=== PATIENT | female | born 1990 | race Caucasian/White ===

== ENCOUNTER 2016-08-30 13:39 | Emergency (ER) | payer OTHER ==
[2016-08-30 14:27] VITALS: BP 147/70
--- NOTE | 2016-08-30 15:48 | UC ---
Throat Pain/Nasal Dg HPI - HPI Summary HPI Summary: 26 yo female with a PMH of depression, tobacco abuse who presents with 2 days of sore throat, headache, nasal congestion, bodyaches, mild diarrhea and intermittent low grade fever of 100, also reports mild ear pressure. She reports her symptoms started wednesday evening and have been consistent, biggest complaint a sore throat and has been eating soft foods only. No abdominal pain, nausea, chills, dysuria, no cough or SOB. continues to smoke cigarettes regularly. Has not treated herself with anything and has not had any sick contacts - History of Current Complaint Chief Complaint: UCGeneralIllness Stated Complaint: SORE THROAT Time Seen by Provider: 08/30/16 15:47 Hx Obtained From: Patient Hx Last Menstrual Period: Mirena IUD ?: No Onset/Duration: Sudden Onset - 2 days ago Pain Intensity: 5 Pain Scale Used: 0-10 Numeric - sore throat Cough: None Associated Signs & Symptoms: Positive: Nasal Discharge, Fever Related History: Smoking - Epiglottits Risk Factors Epiglottis Risk Factors: Negative - Allergies/Home Medications Allergies/Adverse Reactions: Allergies Allergy/AdvReac Type Severity Reaction Status Date / Time Ziprasidone [From [facility]] Allergy Severe Swelling Verified 08/30/16 14:26 Of Face,Lips,& Throat Home Medications: Home Medications Acetaminophen TAB* [Tylenol TAB*] 1,000 mg PO QID PRN 08/30/16 [History Confirmed 08/30/16] Propranolol TAB* [Inderal TAB*] 10 mg PO TID 08/30/16 [History Confirmed ] PMH/Surg Hx/FS Hx/Imm Hx Previously Healthy: Yes Endocrine History Of: Denies: Diabetes, Thyroid Disease Cardiovascular History Of: Denies: Cardiac Disorders, Hypertension Respiratory History Of: Denies: COPD, Asthma GI/ History Of: Denies: Ulcer Psychological History Of: Reports: Bipolar Disorder - Surgical History Surgical History: Yes Surgery Procedure, Year, and Place: SKIN TAG REMOVAL - Family History Known Family History: Positive: Diabetes - Social History Occupation: Employed Full-time Lives: With Family Alcohol Use: None Substance Use Type: None Smoking Status (MU): Current Every Day Smoker Type: Cigarettes Length of Time of Smoking/Using Tobacco: 1/2 ppd Have You Smoked in the Last Year: Yes Cessation Counseling: Counseled 3+Min - 10 Min - Immunization History Most Recent Tetanus Shot: none recent Hx Tetanus, Diphtheria Vaccination: Yes Vaccination Up to Date: Yes Review of Systems Constitutional: Fever, Fatigue, Other - sore throat Skin: Negative Eyes: Negative ENT: Sore Throat, Nasal Discharge Respiratory: Negative Cardiovascular: Negative Gastrointestinal: Diarrhea Genitourinary: Negative Motor: Negative Neurovascular: Negative Musculoskeletal: Negative Neurological: Headache Psychological: Negative All Other Systems Reviewed And Are Negative: Yes Physical Exam Triage Information Reviewed: Yes Appearance: No Pain Distress, Well-Nourished, Ill-Appearing - mild Vital Signs: Initial Vital Signs Temp 98.2 F 08/30/16 14:24 Pulse 86 08/30/16 14:24 Resp 16 08/30/16 14:24 BP 147/70 08/30/16 14:24 Pulse Ox 99 08/30/16 14:24 Vital Signs Reviewed: Yes Eye Exam: Normal Eyes: Positive: Conjunctiva Clear ENT Exam: Normal ENT: Positive: Pharyngeal erythema, Nasal congestion, TMs normal, Tonsillar swelling - 2+ bilateral, uvula midline, Tonsillar exudate - one small patch noted on left tonsil Neck: Positive: Supple, Enlarged Nodes @ - cervical tenderness. Negative: Nuchal Rigidity Respiratory: Positive: Chest non-tender, Lungs clear, Normal breath sounds, No respiratory distress, No accessory muscle use Cardiovascular: Positive: RRR, No Murmur, Pulses Normal, Brisk Capillary Refill Abdomen Description: Positive: Nontender, Soft. Negative: CVA Tenderness (R), CVA Tenderness (L), Distended Musculoskeletal Exam: Normal Musculoskeletal: Positive: Strength Intact, ROM Intact, No Edema Neurological: Positive: Alert Psychological Exam: Normal Skin Exam: Normal Diagnostics - Laboratory Diagnostic Studies Completed/Ordered: positive strep POC Throat Pain/Nasal Course/Dx - Differential Dx/Diagnosis Differential Diagnosis/HQI/PQRI: Pharyngitis Provider Diagnoses: 1. Streptococcal phayngitis Discharge - Discharge Plan Condition: Stable Disposition: HOME Prescriptions: Amoxicillin CAP* [Amoxicillin 500 MG CAP*] 500 mg PO Q12H #20 cap Patient Education Materials: Strep Throat (ED) Referrals: Parth Mathews MD [Primary Care Provider] - (follow up in 2 days in no improvement) Additional Instructions: As discussed, gargle with warm salt water frequently to reduce inflammation, pain and help prevent abscess from forming. If you have any worsening symptoms see your primary care provider or return. Strongly recommended to quit smoking.
== END 2016-08-30 16:31 | disposition home or self-care (01) ==
LOC: UCEAST 13:39
DX: J02.0 Streptococcal pharyngitis (principal); F31.9 Bipolar disorder, unspecified; Z88.8 Allergy status to other drugs, medicaments and biological substances; F17.210 Nicotine dependence, cigarettes, uncomplicated; Z71.6 Tobacco abuse counseling
CPT/HCPCS: 87651; 99212; G0463

== ENCOUNTER 2017-01-07 17:24 | Emergency (ER) | payer SELFPAY ==
[2017-01-07 17:34] VITALS: BP 111/68
--- NOTE | 2017-01-07 18:45 | UC ---
Laceration HPI - HPI Summary HPI Summary: Patient presents with L thumb laceration to the radial side. Injury occurred with scissors at work. Pain is 4/10 and throbbing. Bleeding controlled. Superficial. Laceration is 2.0cm without FB or irregularities. She denies other symptoms. Requesting note for work. Tetanus UTD. - History Of Current Complaint Chief Complaint: UCLaceration Stated Complaint: LEFT THUMB LAC (WC) Time Seen by Provider: 01/07/17 17:35 Hx Obtained From: Patient Hx Last Menstrual Period: 12/29/16 Laceration Location: Finger Mechanism Of Injury: Sharp Trauma Onset/Duration: Sudden Onset Severity: Mild Pain Intensity: 4 Pain Scale Used: 0-10 Numeric - Allergies/Home Medications Allergies/Adverse Reactions: Allergies Allergy/AdvReac Type Severity Reaction Status Date / Time Ziprasidone [From Radhika] Allergy Severe Swelling Verified 01/07/17 17:34 Of Face,Lips,& Throat Home Medications: Home Medications ARIPiprazole TAB* [Abilify TAB*] 1 dose PO DAILY 01/07/17 [History Confirmed ] PMH/Surg Hx/FS Hx/Imm Hx Previously Healthy: Yes - Surgical History Surgical History: Yes Surgery Procedure, Year, and Place: SKIN TAG REMOVAL - Family History Known Family History: Positive: Diabetes - Social History Occupation: Employed Full-time Lives: With Family Alcohol Use: None Substance Use Type: None Smoking Status (MU): Current Every Day Smoker Type: Cigarettes Length of Time of Smoking/Using Tobacco: 1/2 ppd Have You Smoked in the Last Year: Yes - Immunization History Most Recent Tetanus Shot: none recent Hx Tetanus, Diphtheria Vaccination: Yes Vaccination Up to Date: Yes Review of Systems Constitutional: Negative Skin: Other - laceration to the radial side of the thumb Respiratory: Negative Cardiovascular: Negative Motor: Negative Neurovascular: Negative Musculoskeletal: Negative Neurological: Negative Is Patient Immunocompromised?: No All Other Systems Reviewed And Are Negative: Yes Physical Exam Triage Information Reviewed: Yes Appearance: Well-Appearing, Well-Nourished Vital Signs: Initial Vital Signs Temp 97.6 F 01/07/17 17:30 Pulse 77 01/07/17 17:30 Resp 14 01/07/17 17:30 BP 111/68 01/07/17 17:30 Vital Signs Reviewed: Yes Eye Exam: Normal Eyes: Positive: Conjunctiva Clear Neck exam: Normal Neck: Positive: Supple, Nontender, No Lymphadenopathy Respiratory Exam: Normal Respiratory: Positive: Chest non-tender, Lungs clear Cardiovascular Exam: Normal Cardiovascular: Positive: RRR Musculoskeletal Exam: Normal Musculoskeletal: Positive: Strength Intact Neurological Exam: Normal Neurological: Positive: Alert, Muscle Tone Normal Psychological: Positive: Normal Response To Family, Age Appropriate Behavior Skin: Positive: significant lesion(s) - laceraion 2.0 cm Laceration Repair - Laceration Repair 1 Description: Linear Laceration Size After Repair: Length (cm) Modified For Repair: No Closure Material: Skin Adhesive Laceration Course/Dx - Course/Dx Course Of Treatment: Patient is evaluated for laceration to the radial side of the thumv measuring 2.0cm superficial. Adhesive placed over the wound. Gauze wrapped with compression dressing. Patient OK with discharge. Note given for work. No abx given. - Differential Dx - Laceration/Wound Differental Diagnoses: Suture Removal, Tendon Laceration Provider Diagnoses: laceration Discharge - Discharge Plan Condition: Stable Disposition: HOME Patient Education Materials: Skin Adhesive Care (ED) Forms: *Work Release Referrals: Parth Mathews MD [Primary Care Provider] -
== END 2017-01-07 18:11 | disposition home or self-care (01) ==
LOC: UCCORT 17:24
DX: S61.012A Laceration without foreign body of left thumb without damage to nail, initial encounter (principal); W27.2XXA Contact with scissors, initial encounter; Z88.8 Allergy status to other drugs, medicaments and biological substances
CPT/HCPCS: 12001; 99211; G0463

== ENCOUNTER 2017-08-26 17:43 | Emergency (ER) | payer OTHER ==
[2017-08-26 18:15] VITALS: BP 122/72
--- NOTE | 2017-08-26 19:06 | UC ---
- HPI Summary HPI Summary: here because symptoms of the past month, since diagnosed, have been making her feel unwell and lightheaded. She has had to pull off the road on one occasion. History of OCD, bipolar and anxiety. She stopped abilify and lithium in March 2017, and had her Mirena IUD removed. Although not planning , she was not preventing it, and desired another . Has been tearful and upset the past few days, very worried about health of . In the past, she was on medications after the of her daughter, conceived, and was advised to terminate the pregnacy due to the medication exposure. This was very traumatic for her, and she fears that she will have problems with this . Had hyperemesis with first , but did not feel this unwell. 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 Severity: Moderate Current Severity: Moderate Pain Intensity: 0 Associated Signs and Symptoms: Positive: Other: - headaches have been coming off and on - Assessment Hx Now: Yes History of Ectopic : No Hx Pelvic Inflammatory Disease: No Vaginal Bleeding Amount: None Hx Last Menstrual Period: 06/30/17 History of STI/STD: No - Risk Factors Ectopic Risk Factor: IUD Use - removed 6 months ago Ovarian Torsion Risk Factor: Negative - Additional Pertinent History Maternal Blood Type and Rh: AB Positive - Allergies/Home Medications Allergies/Adverse Reactions: Allergies Allergy/AdvReac Type Severity Reaction Status Date / Time ziprasidone [From Radhika] Allergy Swelling Verified 08/26/17 18:16 Of Face,Lips,& Throat PMH/Surg Hx/FS Hx/Imm Hx Psychological History: Anxiety, Bipolar Disorder, Other - OCD Other Psychological History: OCD - Surgical History Surgical History: Yes Surgery Procedure, Year, and Place: SKIN TAG REMOVAL - Family History Known Family History: Positive: Diabetes, Other - thyroid disease. 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 Genitourinary: Negative Motor: Weakness Neurovascular: Negative Musculoskeletal: Negative Neurological: Headache Psychological: Anxious Is Patient Immunocompromised?: No All Other Systems Reviewed And Are Negative: Yes Physical Exam - Physical Exam Triage Information Reviewed: Yes Appearance: Positive: Well-Nourished - tearful and anxious, stable vital signs. Skin: Positive: Warm Head/Face: Positive: Normal Head/Face Inspection Eyes: Positive: Normal, EOMI, DONAVON, Conjunctiva Clear ENT: Positive: Pharynx normal, TMs normal Respiratory/Lung Sounds: Positive: Clear to Auscultation. Negative: Decreased Breath Sounds, Rales Cardiovascular: Positive: Normal, RRR. Negative: Leg Edema Left, Leg Edema Right Abdomen Description: Positive: Nontender, No Organomegaly, Soft Musculoskeletal: Positive: Normal Neurological: Positive: Normal Psychiatric: Positive: Anxious AVPU Assessment: Alert Diagnostics - Laboratory Diagnostic Studies Completed/Ordered: UA negative for infection, blood glucose of 79 Course/Dx - Course Course Of Treatment: reassurance that exam is normal. Encouraged mental health follow up and OB follow up as arranged. Sees OB 09/02/17 - Differential Diagnosis/HQI/PQRI: Intrauterine , UTI, Other: - anxiety, depression - Diagnoses Provider Diagnoses: Anxiety about health Discharge - Sign-Out/Discharge Documenting (check all that apply): Discharge/Admit/Transfer - Discharge Plan Condition: Stable Disposition: HOME Patient Education Materials: (ED) Forms: *Work Release Referrals: Parth Mathews MD [Primary Care Provider] - Additional Instructions: Your symptoms are consistent with the experience of early . I suggest that you follow up with Dr. Mathews or your counsellor as well as OBGYN to establish care. As discussed, your concerns and worries are understandable given your experience , and your physical findings today are normal. - Billing Disposition and Condition Condition: STABLE Disposition: HOME
== END 2017-08-26 19:28 | disposition home or self-care (01) ==
LOC: UCCORT 17:43
DX: F41.9 Anxiety disorder, unspecified (principal); F42.9 Obsessive-compulsive disorder, unspecified; F17.210 Nicotine dependence, cigarettes, uncomplicated; Z88.8 Allergy status to other drugs, medicaments and biological substances
CPT/HCPCS: 81003; 99211; G0463

== ENCOUNTER 2017-11-16 07:23 | Emergency (ER) | payer OTHER ==
[2017-11-16 07:36] VITALS: BP 121/68
--- NOTE | 2017-11-16 08:29 | UC ---
Skin Complaint HPI - HPI Summary HPI Summary: NOTICED A RED LESION ON HER LEFT WRIST ABOUT A WEEK AGO. STATES IT HAS GOTTEN DARKER. NOT ITCHY OR PAINFUL. ALSO COMPLAINS OF SEVERAL DAYS OF LOW BACK PAIN. PATIENT DOES HEAVY LIFTING AT WORK AND IS ALSO 6 MONTHS . NO URINARY SYMPTOMS. - History of Current Complaint Chief Complaint: UCBackPain Time Seen by Provider: 11/16/17 07:43 Stated Complaint: BACK PAIN SKIN ISSUE Hx Obtained From: Patient Hx Last Menstrual Period: 12/29/16 Onset/Duration: Gradual Onset, Lasting Days, Still Present Timing: Constant Onset Severity: Moderate Current Severity: Moderate Pain Intensity: 5 - BACK PAIN Pain Scale Used: 0-10 Numeric Location: Other - LEFT WRIST Aggravating Factor(s): Nothing Alleviating Factor(s): Nothing - Allergy/Home Medications Allergies/Adverse Reactions: Allergies Allergy/AdvReac Type Severity Reaction Status Date / Time ziprasidone [From Radhika] Allergy Swelling Verified 11/16/17 07:36 Of Face,Lips,& Throat Home Medications: Home Medications Pnv No.95/Ferrous Fum/Folic AC [ Tablet] 1 tab PO 11/16/17 [History] Review of Systems Constitutional: Negative Skin: Rash Respiratory: Negative Cardiovascular: Negative Gastrointestinal: Negative Genitourinary: Negative Musculoskeletal: Myalgia All Other Systems Reviewed And Are Negative: Yes PMH/Surg Hx/FS Hx/Imm Hx Previously Healthy: Yes - Surgical History Surgical History: Yes Surgery Procedure, Year, and Place: SKIN TAG REMOVAL - Family History Known Family History: Positive: Diabetes, Other - thyroid disease. Negative: Hypertension - Social History Alcohol Use: None Substance Use Type: None Smoking Status (MU): Light Every Day Tobacco Smoker Type: Cigarettes Length of Time of Smoking/Using Tobacco: 1/2 ppd Have You Smoked in the Last Year: Yes - Immunization History Most Recent Tetanus Shot: none recent Hx Tetanus, Diphtheria Vaccination: Yes Vaccination Up to Date: Yes Physical Exam Triage Information Reviewed: Yes Appearance: Well-Appearing, No Pain Distress, Well-Nourished Vital Signs: Initial Vital Signs Temp 99.1 F 11/16/17 07:32 Pulse 105 11/16/17 07:32 Resp 18 11/16/17 07:32 BP 121/68 11/16/17 07:32 Pulse Ox 99 11/16/17 07:32 Laboratory Tests 11/16/17 07:47 POC Urine Color Hien POC Urine Clarity Clear POC Urine pH 6.0 POC Ur Specif [place] >= 1.030 POC Urine Protein Trace A POC Ur Glucose (UA) Negative POC Urine Ketones Negative POC Urine Blood Negative POC Urine Nitrite Negative POC Urine Bilirubin 1+ A POC Urine Urobilinogen 1.0 POC U Leukocyte Esteras Negative Vital Signs Reviewed: Yes Eyes: Positive: Conjunctiva Clear ENT: Positive: Hearing grossly normal Neck: Positive: Supple Respiratory: Positive: No respiratory distress, No accessory muscle use Cardiovascular: Positive: Pulses Normal Abdomen Description: Positive: Soft - GRAVID Musculoskeletal: Positive: No Edema Neurological: Positive: Alert Psychological: Positive: Age Appropriate Behavior Skin: Positive: rashes - 1.5CM CIRCULAR LESION WITH CENTRAL CLEARING AND FINE SCALE RADIAL SIDE OF LEFT WRIST Course/Dx - Diagnoses Provider Diagnoses: 1. RING WORM - LEFT WRIST. 2. ACUTE LOW BACK PAIN Discharge - Sign-Out/Discharge Documenting (check all that apply): Patient Departure - Discharge Plan Condition: Stable Disposition: HOME Prescriptions: Terbinafine HCl [Antifungal] 15 gm TP DAILY #1 tube Patient Education Materials: Tinea Corporis (ED), Low Back Strain (ED) Forms: *Work Release Referrals: Parth Mathews MD [Primary Care Provider] - If Needed Additional Instructions: APPLY THE ANTIFUNGAL TO SPOT ON YOUR LEFT WRIST DAILY. IT MAY TAKE UP TO 4 WEEKS TO RESPOND. IF NOT IMPROVING EXPECTED FOLLOW-UP WITH DERMATOLOGY. DERMATOLOGY IN [place] DR. SANTINO OSEGUERA [facility], [facility] [address]; [address] [place] [address] Dr. Morena Taylor [place] Address: [address] [place] [address] [address] [place] [address] [facility] [address] [place] [address] [place] [address] Carolynn Carlos DERMATOLOGY IN [place] DR. NIMCO ROBLES [phone] YOUR LOW BACK PAIN MAY BE DUE TO AN ACUTE STRAIN BUT IS LIKELY ALSO CONTRIBUTED TO BY YOUR CURRENT . YOU MAY TAKE TYLENOL TO HELP WITH DISCOMFORT AND USE A HEATING PAD. NO NSAIDS SUCH IBUPROFEN OR ALEVE DURING . BE SURE TO GO THROUGH SLOW RANGE OF MOTION AND STRETCHING EXERCISES DAILY YOU ARE ABLE TO PREVENT STIFFENING UP AND MAKING THE DISCOMFORT WORSE. YOU HAD A TRACE AMOUNT OF PROTEIN IN YOUR URINE WHICH IS LIKELY SIMPLY DUE TO LACK OF FLUID HYDRATION. BE SURE TO DRINK WATER TO STAY WELL-HYDRATED. KEEP YOUR OB APPOINTMENT NEXT WEEK. THEY WILL RECHECK YOUR URINE AT THAT TIME. - Billing Disposition and Condition Condition: STABLE Disposition: Home
== END 2017-11-16 08:30 | disposition home or self-care (01) ==
LOC: UCEAST 07:23
DX: O26.892 Other specified pregnancy related conditions, second trimester (principal); B35.4 Tinea corporis; M54.5 Low back pain; Z3A.26 26 weeks gestation of pregnancy; Z88.8 Allergy status to other drugs, medicaments and biological substances; F17.210 Nicotine dependence, cigarettes, uncomplicated
CPT/HCPCS: 81003; 99212; G0463

== ENCOUNTER 2018-04-03 08:17 | Inpatient (IN) | payer MEDICAID, OTHER ==
[2018-04-03] MEDS ORDERED: Lactated Ringers 1000 ML Bag* 1,000 ML IV ONE ×2 (09:18→20:12)
--- NOTE | 2018-04-03 09:39 | HP ---
General Information - Reason for Visit Pt experienced SROM to clear fluid at 0622. Beginning to have more regular contractions - General Information Maternal Age: 27 Grav: 3 Para: 1 SAB: 0 IEA: 1 Estimated Due Date: 04/06/18 Determined By: Early Ultrasound Maternal Blood Type and Rh: AB Positive - Results this Serology/RPR Result: Non-Reactive Rubella Result: Immune HBsAg Result: Negative HIV Result: Negative GBS Culture Result: Negative Past Medical History Delivery History: Hx Uncomplicated Vaginal Delivery Pertinent Past Medical History: See Records - back pain, enlarged pituitary gland, migraine, BPD (resolved after stopping Mirena), substance use disorder (no use since 2009) Pertinent Past Surgical History: See Records - wisdom tooth extraction Pertinent Family History: See Records - depression, heart disease, "hole in heart" - Antepartal Records Antepartal Records: Reviewed, Complicated by: - non-immune to varicella, smoker, gestational thrombocytopenia Review of Systems Constitutional: Comfortable CV Complaint: No Respiratory: Shortness of Breath: No Gastrointestinal: No Nausea/Vomiting, Normal Bowel Movement Genitourinary: Leaking Fluid, No Dysuria, No Bleeding Musculoskeletal: No Epigastric Pain, Contractions Neurological: No Headache, No Visual Changes Movement: Normal Exam Allergies/Adverse Reactions: Allergies ziprasidone [From Geodon] Allergy (Severe, Verified 04/03/18 08:34) Swelling Of Face,Lips,& Throat Vital Signs 04/03/18 08:25 Temperature 98.0 F Pulse Rate 104 Respiratory 17 Rate Blood Pressure 136/76 (mmHg) O2 Sat by Pulse 98 Oximetry Lab Values - Entire Visit: Laboratory Tests 04/03/18 08:52 Vag Amniotic Fld Detect Positive - Measurements Height: 5 ft 11.5 in Weight: 115.666 kg Weight in lbs: 255.248739 Body Mass Index (BMI): 35.0 Pre- Weight: 105.234 kg Weight Gained This : 22.999 lbs and 0.009 ozs - Exam Breast: Breast Exam Deferred CVA: No CVA Tenderness Extremities: No Edema Heart: Normal Rhythm/Heart Sounds HEENT: No Significant Findings Lungs: Clear Bilaterally Rectal: Rectal Exam Deferred Reflexes: DTR 2+ Thyroid: No Thyromegaly - Abdominal Exam Abdomen Exam: Non-Tender, Fundal Height Consistent with Dates Targeted Exam Findings See L&D Outpatient Visit Provider Note for Findings: N/A Estimated Weight: 8# Cervical Exam: 2cm - 2-3 cm Effacement: 50% Station: -2 - posterior Presenting Part: Vertex Membrane Status: SROM Amniotic Fluid Evaluation: Positive ROM Plus Bleeding/Discharge: None EFM Findings - External Monitor Findings Baseline Heart Rate: 150 External Monitor Findings: Accelerations Present, No Pattern of Variable or Late Decelerations, Variability Moderate Contractions: Irregular, Mild, 45-90 Seconds Contraction Frequency: 2-10 Assessment/Plan - Assessment 27 year old at 39 4/7 weeks gestation with ruptured membranes, GBS negative, in early labor, no evidence of acidemia. - Obstetrical Risk Factors Obstetrical Risk Factors: Obesity, Psychiatric Issues - Plan Plan: Admit - Anticipate Vaginal Delivery Plan Comment: Pt admitted to Labor and Delivery. At this time, pt is beginning to contract more regularly and prefers to avoid Pitocin if possible, so will manage expectantly. IV access established as pt w/ hx gestational thrombocytopenia, and will give IV bolus of 500 cc then saline lock. Discussed pt's tobacco use. She feels okay to wait to use nicotine patch until after baby is born. - Date/Time of Admission Date of Admission: 04/03/18 Time of Admission: 09:24
[2018-04-03 10:30] LABS: ABS Basophils 0 10^3/ul (0-0.2); ABS Eosinophils 0.1 10^3/ul (0-0.6); ABS Lymphocytes 1.6 10^3/ul (1.0-4.8); ABS Monocytes 0.6 10^3/ul (0-0.8); ABS Neutrophils 10.5 10^3/ul (1.5-7.7); ABS Nucleated RBC 0 10^3/ul; Eosinophil % 0.9 %; Hematocrit 33 % (35-47); Hemoglobin 11.2 g/dl (12.0-16.0); Lymphocyte % 12.2 %; Mean Corpuscular HGB Conc 34 g/dl (31-36); Mean Corpuscular Hemoglobin 28 pg (27-31); Mean Corpuscular Volume 82 fL (80-97); Mean Platelet Volume 10.3 fL (7.4-10.4); Nucleated Red Blood Cells % 0; Platelet Count 122 10^3/ul (150-450); Red Blood Count 4.05 10^6/ul (4.00-5.40); Red Cell Distribution Width 14 % (10.5-15); White Blood Count 12.8 10^3/ul (3.5-10.8)
[2018-04-03] MEDS ORDERED: Calcium Carbonate CHEW TAB* 500 MG (TUMS) PO PRN (13:33)
[2018-04-03] MEDS ORDERED: Oxytocin in LR* 20 UNITS/1,000 ML BAG IVPB SCH (14:00)
[2018-04-03] MEDS: Lactated Ringers 1000 ML Bag* 1,000 ML IV SCH ×3 (15:56→20:47)
[2018-04-03] MEDS ORDERED: OBEPIDURAL* 250 ML EPIDURAL ONE (19:39)
[2018-04-03] MEDS ORDERED: Phenylephrine IV* 40 MCG/ML 10 ML SYRINGE IV PUSH PRN (20:12)
[2018-04-03] MEDS ORDERED: Famotidine IV* 10 MG/ML 2 ML (20 mg) IV PRN (20:12)
[2018-04-03] MEDS ORDERED: Famotidine TAB* 20 MG PO PRN (20:12)
[2018-04-03] MEDS ORDERED: Sodium Citrate/Citric Acid* 15 ML UDC PO PRN (20:12)
[2018-04-03] MEDS ORDERED: Famotidine IV* 10 MG/ML 2 ML (20 mg) ONE (20:25)
[2018-04-03] MEDS ORDERED: Bupivacaine 0.5% SDV PF* 30ML VIAL ONE (20:51)
[2018-04-03] MEDS ORDERED: Sodium Chloride 0.9%* 10 ML ONE (20:51)
[2018-04-03] MEDS ORDERED: Lactated Ringers 1000 ML Bag* 1,000 ML IV SCH (21:00)
[2018-04-03] MEDS ORDERED: OBEPIDURAL* 250 ML EPIDURAL SCH (21:00)
[2018-04-04] MEDS ORDERED: Dibucaine 1% 28.35 GM TUBE PR PRN (00:26)
[2018-04-04] MEDS ORDERED: Witch Hazel PAD* JAR TOPICAL PRN (00:26)
[2018-04-04] MEDS ORDERED: Glycerin ADULT SUPP PR PRN (00:26)
[2018-04-04] MEDS ORDERED: Acetaminophen TAB* 325 MG PO PRN (00:26)
[2018-04-04] MEDS ORDERED: Lactated Ringers 1000 ML Bag* 1,000 ML IV SCH (01:00)
[2018-04-04] MEDS ORDERED: Oxytocin in LR* 20 UNITS/1,000 ML BAG IVPB SCH (01:00)
--- NOTE | 2018-04-04 01:02 | PROCNOTE ---
[facility] OB: Delivery Note - Delivery A Date of : 04/04/18 Time of : 00:02 [place] Sex: Male Weight at : 3.784 kg Score 1 Minute: 9 Score 5 Minutes: 9 Gestational Age in Weeks and Days at Delivery: 39 Weeks and 5 Days Delivery Method: Spontaneous Vaginal Labor: Spontaneous Did Patient attempt ?: N/A, No Previous Amniotic Fluid: Clear Anesthesia/Analgesia: CEI for Labor - Nursery Level of Nursery: Regular/Bedside - Perineum Perineal Injury: Abrasion Only - Not Repaired - periurethral abrasion Perineal Repair: None - Events Delivery Events of Note: Pitocin During Labor - Additional Delivery Notes Additional Delivery Notes: Pt presented to Labor and Delivery with ruptured membranes in early labor. Initially managed expectantly but after active labor did not ensue initiated Pitocin augmentation. Pt initially used ball, tub, and position changes to cope with contractions, but eventually requested and received an epidural. At first epidural did not provide adequate relief, but Dr. Reyes bolused it with stronger solution and pt achieved excellent pain relief. Pt made steady progress in dilation. Eventually after observing early decelerations pt was checked and found to be fully dilated. Despite having minimal sensation of contractions pt was able to push effectively and she soon brought infant to [facility] and was coached through slow, controlled delivery of the head, OA to JULIO. Shoulders followed easily and infant brought to maternal abdomen with vigorous cry, HR> 100. After pulsation ceased cord clamped x2 and cut by infant' s father. Placenta soon followed, marlene presentation. After of placenta Pitocin increased to 250 cc/ hr and fundal massage performed. Bleeding minimal. Perineal examination revealed only superficial periurethral abrasions, not repaired. Mother and stable at this time, anticipate normal course.
[2018-04-04] MEDS: Ibuprofen TAB* 600 MG PO PRN ×4 (02:33→21:11)
[2018-04-04] MEDS ORDERED: Methylergonovine INJ* 0.2 MG/ML 1ML AMP ONE (02:39)
[2018-04-04] MEDS ORDERED: fentaNYL* 50 MCG/ML 2 ML VIAL (100 MCG VIAL) ONE (02:53)
[2018-04-04] MEDS ORDERED: ceFAZolin 2 GM PREMIX in ORs 2 GM/50 ML BAG IVPB ONE (03:06)
[2018-04-04] MEDS ORDERED: Misoprostol TAB* 100 MCG ONE (03:10)
[2018-04-04] MEDS ORDERED: Misoprostol TAB* 200 MCG ONE (03:12)
[2018-04-04] MEDS ORDERED: Methylergonovine INJ* 0.2 MG/ML 1ML AMP IM ONE (03:13)
[2018-04-04] MEDS ORDERED: Misoprostol TAB* 200 MCG PR ONE (03:14)
--- NOTE | 2018-04-04 03:21 | PN ---
Progress Note - Progress Note Date of Service: 04/04/18 SOAP: Subjective: [] Objective: [] Assessment: [] Plan: []
--- NOTE | 2018-04-04 03:36 | PN ---
Progress Note - Progress Note Date of Service: 04/04/18 Note: Called to bedside by RN to evaluate pt after she passed large clot and gush of blood. Pt observed to have passed about 500 cc of clots and blood. Fundus firm at that time. Methergine 0.2 mg administered IM and bladder emptied with straight catheter. Fundus remained firm and pt's vital signs remained stable. However, pt then passed another large clot, about another [address] Lemus called and requested to come in. After explaining rationale to pt and obtaining verbal consent, manual exploration of uterus performed using sterile glove. Pt offered Fentanyl before procedure but she declined. Clots expressed from lower uterine segment. No placental fragments noted. Pt tolerated well. Cytotec 800 mcg administered [place]. Pitocin continued to infuse at 250 cc/ hr since delivery, will continue at 150 cc/ hr if fundus remains firm. Per Dr. Lemus's recommendations, Ancef 2gm IV ordered as prophylaxis due to uterine exploration. Hgb/ hct drawn and sent. Pt's vital signs have been stable throughout. Dr. Lemus present on unit.
[2018-04-04 03:37] LABS: Hematocrit 28 % (35-47); Hemoglobin 9.4 g/dl (12.0-16.0)
[2018-04-04 07:15] LABS: Hematocrit 28 % (35-47); Hemoglobin 9.8 g/dl (12.0-16.0); Mean Corpuscular HGB Conc 35 g/dl (31-36); Mean Corpuscular Hemoglobin 29 pg (27-31); Mean Corpuscular Volume 82 fL (80-97); Red Blood Count 3.42 10^6/ul (4.00-5.40); Red Cell Distribution Width 14 % (10.5-15); White Blood Count 10.6 10^3/ul (3.5-10.8)
[2018-04-04 07:38] LABS: ABS Basophils 0 10^3/ul (0-0.2); ABS Eosinophils 0.1 10^3/ul (0-0.6); ABS Lymphocytes 1.4 10^3/ul (1.0-4.8); ABS Monocytes 0.7 10^3/ul (0-0.8); ABS Neutrophils 8.5 10^3/ul (1.5-7.7); ABS Nucleated RBC 0 10^3/ul; Eosinophil % 0.8 %; Lymphocyte % 12.8 %; Mean Platelet Volume 10.2 fL (7.4-10.4); Nucleated Red Blood Cells % 0; Platelet Count 98 10^3/ul (150-450)
[2018-04-04] MEDS: Docusate CAP* 100 MG PO SCH ×3 (08:21→21:11)
[2018-04-04] MEDS: Ferrous Gluconate TAB* 324 MG TAB PO SCH ×2 (08:21→21:11)
[2018-04-04] MEDS ORDERED: Simethicone TAB* 80 MG TAB.CHEW PO SCH (08:30)
[2018-04-04] MEDS ORDERED: Varicella Virus Vaccine Live* 0.5 ML VIAL SUBCUT ONE (09:00)
[2018-04-04 15:19] LABS: ABS Basophils 0 10^3/ul (0-0.2); ABS Eosinophils 0.2 10^3/ul (0-0.6); ABS Lymphocytes 1.2 10^3/ul (1.0-4.8); ABS Monocytes 0.6 10^3/ul (0-0.8); ABS Neutrophils 6.7 10^3/ul (1.5-7.7); ABS Nucleated RBC 0 10^3/ul; Hematocrit 26 % (35-47); Hemoglobin 8.8 g/dl (12.0-16.0); Mean Corpuscular HGB Conc 34 g/dl (31-36); Mean Corpuscular Hemoglobin 28 pg (27-31); Mean Corpuscular Volume 83 fL (80-97); Mean Platelet Volume 10.2 fL (7.4-10.4); Nucleated Red Blood Cells % 0; Platelet Count 96 10^3/ul (150-450); Red Blood Count 3.12 10^6/ul (4.00-5.40); Red Cell Distribution Width 14 % (10.5-15); White Blood Count 8.6 10^3/ul (3.5-10.8)
[2018-04-05] MEDS ORDERED: Ammonia Inhalant* 1 EA AMP ONE (01:33)
[2018-04-05] MEDS: Ibuprofen TAB* 600 MG PO PRN (04:30)
[2018-04-05 06:29] LABS: Hematocrit 26 % (35-47); Hemoglobin 8.8 g/dl (12.0-16.0); Mean Corpuscular HGB Conc 33 g/dl (31-36); Mean Corpuscular Hemoglobin 28 pg (27-31); Mean Corpuscular Volume 83 fL (80-97); Mean Platelet Volume 10.2 fL (7.4-10.4); Platelet Count 105 10^3/ul (150-450); Red Blood Count 3.15 10^6/ul (4.00-5.40); Red Cell Distribution Width 14 % (10.5-15); White Blood Count 8.2 10^3/ul (3.5-10.8)
[2018-04-05 07:36] LABS: ABS Basophils 0 10^3/ul (0-0.2); ABS Eosinophils 0.2 10^3/ul (0-0.6); ABS Lymphocytes 1.7 10^3/ul (1.0-4.8); ABS Monocytes 0.5 10^3/ul (0-0.8); ABS Neutrophils 5.7 10^3/ul (1.5-7.7); ABS Nucleated RBC 0 10^3/ul; Lymphocyte % 20.6 %; Nucleated Red Blood Cells % 0
[2018-04-05 07:59] VITALS: BP 119/66
[2018-04-05] MEDS: Docusate CAP* 100 MG PO SCH (08:46)
[2018-04-05] MEDS: Ferrous Gluconate TAB* 324 MG TAB PO SCH (08:46)
== END 2018-04-05 11:54 | disposition home or self-care (01) | DRG 560 ==
LOC: MCHOBOUT 08:17 → MCHOB 09:24
PROVIDERS: ADMIT Midwife; ATTEND Midwife
PROC: 10E0XZZ Delivery of Products of Conception, External Approach (ICD-10-PCS; principal; 2018-04-04)
DX: O99.334 Smoking (tobacco) complicating childbirth (principal); Z37.0 Single live birth; O99.214 Obesity complicating childbirth; E66.9 Obesity, unspecified; O71.82 Other specified trauma to perineum and vulva; O99.344 Other mental disorders complicating childbirth; F99 Mental disorder, not otherwise specified; O72.0 Third-stage hemorrhage; O90.81 Anemia of the puerperium; D64.9 Anemia, unspecified; Z3A.39 39 weeks gestation of pregnancy
CPT/HCPCS: 36415; 84112; 85014; 85018; 85025; 85060; 86850; 86900; 86901; A9270-GY; J0690; J2210; J3010; S0191